=== PATIENT | male | born 1990 | race Native Hawaiian/Other Pacific Islander ===

== ENCOUNTER 2017-04-02 11:21 | Outpatient (CLI) | payer OTHER ==
[~2017-04-02 11:21] MED LIST: AMLO2.5T PO; ASA LO-DOSE81 MG PO
== END 2017-04-02 22:49 | disposition home or self-care (01) ==
LOC: RAD 11:21
DX: R06.02 Shortness of breath (principal); Z87.01 Personal history of pneumonia (recurrent)

== ENCOUNTER 2018-06-05 08:01 | Outpatient (CLI) | payer OTHER | END 2018-06-05 18:55 | disposition home or self-care (01) | LOC: RAD 08:01 | DX: R05 Cough (principal) ==

== ENCOUNTER 2018-06-12 09:01 | Outpatient (CLI) | payer OTHER | END 2018-06-12 22:48 | disposition home or self-care (01) | LOC: US 09:01 | DX: R10.11 Right upper quadrant pain (principal) ==

== ENCOUNTER 2018-06-23 12:48 | Outpatient (CLI) | payer OTHER | END 2018-06-23 19:20 | disposition home or self-care (01) | LOC: NM 12:48 | DX: R10.11 Right upper quadrant pain (principal); K82.8 Other specified diseases of gallbladder | CPT/HCPCS: A9537 ==